=== PATIENT | male | born 1990 | race Caucasian/White ===

== ENCOUNTER 2020-03-13 01:45 | Emergency (ER) | payer MEDICAID ==
[~2020-03-13] VITALS: Ht 175.3 cm; Wt 70.0 kg
[2020-03-13 01:48] VITALS: BP 106/63
== END 2020-03-13 02:36 | disposition home or self-care (01) ==
LOC: ER 01:45
DX: Z04.89 Encounter for examination and observation for other specified reasons (principal); F31.9 Bipolar disorder, unspecified; Z59.0 Homelessness
CPT/HCPCS: 99283